=== PATIENT | male | born 1970 | race Caucasian/White ===

== ENCOUNTER 2019-11-03 11:05 | Emergency (ER) | payer SELFPAY ==
[~2019-11-03] VITALS: Ht 185.4 cm; Wt 99.8 kg
[2019-11-03 11:14] VITALS: BP 150/94
[2019-11-03] MEDS ORDERED: Tetanus/Diptheria/Pertussis IM ONE (11:15)
--- NOTE | 2019-11-03 11:18 | NUR ---
ED Nurse Note: pt. aaox4. ambulatory. pt. walked in to er from home. per pt. he was got lacerations on his L-hand 2nd and 3rd digit from a fan blade. bleeding is controlled
[2019-11-03] MEDS ORDERED: CEPHALEXIN500 M1 ORAL (11:39)
--- NOTE | 2019-11-03 11:39 | Emergency Room Report ---
History of Present Illness General Chief Complaint: Laceration Source: Patient Present Illness HPI 49-year-old male presents with laceration to the left index finger on the radial and volar aspect, patient reports that it occurred yesterday around 3 PM , unknown tetanus date he endorses some sharp pain when the fingers touch alleviated by not touching it severity is mild, intermittent, patient denies any numbness or tingling no hand numbness patient presents for evaluation of the laceration and possible repair Allergies: Coded Allergies: No Known Allergies (Unverified , 11/03/19) COVID-19 Screening Contact w/high risk pt: No Recent Travel to affected area: No Experienced COVID-19 symptoms?: No Patient History Past Medical History: see triage record Reviewed Nursing Documentation: PMH: Agreed; PSxH: Agreed Nursing Documentation-PMH Past Medical History: No Stated History Review of Systems All Other Systems: negative except mentioned in HPI Physical Exam Vital Signs Date Time Temp Pulse Resp B/P (MAP) Pulse Ox O2 Delivery O2 Flow Rate FiO2 11/03/19 11:14 97.3 76 19 150/94 97 Room Air General Appearance: well appearing, no apparent distress Head: normocephalic, atraumatic ENT: hearing grossly normal, normal voice Neck: full range of motion, supple Respiratory: no respiratory distress, speaking full sentences Musculoskeletal: other - Left upper extremity: Hand: 2+ radial pulse, cap refill less than 3 seconds, radial median ulnar nerve intact, laceration to the radial aspect of the index finger measuring approximately less than half a centimeter currently healing, superficial laceration on the volar aspect of the index finger measuring less than half centimeter already reapproximated Neurologic: alert, normal gait Psychiatric: mood/affect normal Skin: no rash Medical Decision Making Diagnostic Impression: Primary Impression: Laceration ER Course 49-year-old male presents with a finger laceration, x-ray shows no acute fracture dislocation, wounds are artery reapproximating no indications to suture delayed wound closure recommended, patient given tetanus, antibiotics disposition home with return precautions follow-up with PCP Other X-Ray Diagnostic Results Other X-Ray Diagnostic Results : X-Ray ordered: Left hand # of Views/Limited Vs Complete: 3 View Indication: Pain EP Interpretation: Yes Interpretation: no dislocation, no fractures Impression: No acute disease Electronically Signed by: Rolando Pollack MD Last Vital Signs Date Time Temp Pulse Resp B/P (MAP) Pulse Ox O2 Delivery O2 Flow Rate FiO2 11/03/19 11:14 97.3 76 19 150/94 (112) 97 Room Air Disposition: HOME, SELF-CARE Condition: Stable Scripts Cephalexin* (KEFLEX*) 500 Mg Tablet 500 MG ORAL EVERY 6 HOURS, #28 CAP Prov: Rolando Pollack MD 11/03/19 Referrals: NON PHYSICIAN (PCP) [facility] Patient Instructions: Nonsutured Laceration Care Additional Instructions: The patient was provided with discharge instructions, notified to follow-up with a primary care doctor and or specialist in the next 24-48 hours, and to return to the ED if they have worsening of their symptoms. Please note that this report is being documented using [employer] technology. This can lead to erroneous entry secondary to incorrect interpretation by the dictating instrument. Rolando Pollack MD Nov 03, 2019 11:39
[2019-11-03 11:40] VITALS: BP 150/94
--- NOTE | 2019-11-03 11:40 | NUR ---
ER DISCHARGE NOTE: Patient is cleared to be discharged per ERMD, pt is aox4, on room air, with stable vital signs. pt was given dc and prescription instructions, pt was able to verbalize understanding, pt is able to ambulate with steady gait. pt took all belongings.
--- NOTE | 2019-11-03 12:09 | Diagnostic Imaging Report ---
Indication: Left hand pain Technique: 3 views left hand Comparison: none Findings: No acute fractures. No dislocations. The joint spaces are preserved. Bony alignment is normal. Impression: Negative
== END 2019-11-03 11:40 | disposition home or self-care (01) ==
LOC: EMR 11:26
DX: S61.211A Laceration without foreign body of left index finger without damage to nail, initial encounter (principal); Z23 Encounter for immunization; X58.XXXA Exposure to other specified factors, initial encounter; Y92.9 Unspecified place or not applicable
CPT/HCPCS: 90471; 90715; 99283